=== PATIENT | female | born 1960 | race Caucasian/White ===

== ENCOUNTER 2022-07-16 17:46 | Emergency (ER) | payer BC ==
[~2022-07-16] VITALS: Ht 165.1 cm; Wt 48.1 kg
--- NOTE | 2022-07-16 19:09 | NUR ---
Patient refused blood draw. notified
[2022-07-16 20:00] VITALS: BP 140/78
--- NOTE | 2022-07-16 20:00 | NUR ---
Patient discharged to home in stable condition. Written and verbal after care instructions given. Patient verbalizes understanding of instructions. Stressed follow up or return to ER for worsening s/s. Patient is a/ox4, NAD noted, Patient is able to walk with steady gait
[2022-07-16 22:27] LABS: *BILIRUBIN,URIN NEGATIVE (NEGATIVE); *BLOOD, URINE NEGATIVE (NEGATIVE); *CLARITY,URINE CLEAR (CLEAR); *COLOR,URINE YELLOW (YELLOW); *KETONES,URINE NEGATIVE (NEGATIVE); *UROBILINOGEN,URINE 0.2 E.U./dl (NORMAL); LEUKOCYTE ESTERASE ,URINE NEGATIVE (NEGATIVE); NITRITE, URINE NEGATIVE (NEGATIVE); PH,URINE 7.5 (5.0-8.0); UGLUCOSE NEGATIVE (NEGATIVE)
== END 2022-07-16 20:01 | disposition home or self-care (01) ==
LOC: ER 17:55
DX: F41.9 Anxiety disorder, unspecified (principal); I10 Essential (primary) hypertension; N95.1 Menopausal and female climacteric states; M85.80 Other specified disorders of bone density and structure, unspecified site; Z85.828 Personal history of other malignant neoplasm of skin
CPT/HCPCS: 93005; A4663